=== PATIENT | male | born 1975 | race Hispanic/Latino ===

== ENCOUNTER 2019-02-09 16:41 | Emergency (ER) | payer OTHER ==
--- NOTE | 2019-02-09 17:56 | EDPHYS ---
Physician Documentation [facility] Name: David Wong Age: 43 yrs Sex: Male : 1975 Arrival Date: 02/09/2019 Time: 16:42 Bed 26 Private MD: ED Physician Froylan Ochao HPI: 02/09 17:52 This 43 yrs old Male presents to ER via Ambulatory with complaints of High jr8 Blood Pressure, Headache. 17:52 The patient has elevated blood pressure and discovered this at home. Onset: The jr8 symptoms/episode began/occurred acutely, today. Modifying factors: The symptoms are aggravated by activity. Associated signs and symptoms: Pertinent positives: headache. Severity of symptoms: At its worst the blood pressure was moderate, in the emergency department the blood pressure is improved. The patient has not experienced similar symptoms in the past. The patient has not recently seen a physician. Stated that he has been off of his medications for over 2 weeks now. Stated that he blood pressure was elevated and now having headache. Denies any other s/s. over nighted his medications . Historical: - Allergies: 16:54 Iodine; ss 16:54 Iodinated Contrast Media - IV Dye; ss - PMHx: 16:54 Hypertension; Narcolepsy; ss - PSHx: 16:54 None; ss - Immunization history:: Adult Immunizations up to date. - Social history:: Smoking status: Patient/guardian denies using tobacco, but has a distant history of tobacco abuse. - Ebola Screening: : Patient denies exposure to infectious person Patient denies travel to an Ebola-affected area in the 21 days before illness onset. ROS: 17:52 Eyes: Negative for injury, pain, redness, and discharge, ENT: Negative for injury, jr8 pain, and discharge, Neck: Negative for injury, pain, and swelling, Cardiovascular: Negative for chest pain, palpitations, and edema, Respiratory: Negative for shortness of breath, cough, wheezing, and pleuritic chest pain, Abdomen/GI: Negative for abdominal pain, nausea, vomiting, diarrhea, and constipation, Back: Negative for injury and pain, MS/Extremity: Negative for injury and deformity, Skin: Negative for injury, rash, and discoloration. 17:52 Neuro: Positive for headache, Negative for altered mental status, dizziness, gait disturbance, hearing loss, loss of consciousness, numbness, seizure activity, speech changes, syncope, near syncope, tingling, tinnitus, tremor, visual changes, weakness. Exam: 17:52 Eyes: Pupils equal round and reactive to light, extra-ocular motions intact. Lids and jr8 lashes normal. Conjunctiva and sclera are non-icteric and not injected. Cornea within normal limits. Periorbital areas with no swelling, redness, or edema. ENT: Nares patent. No nasal discharge, no septal abnormalities noted. Tympanic membranes are normal and external auditory canals are clear. Oropharynx with no redness, swelling, or masses, exudates, or evidence of obstruction, uvula midline. Mucous membranes moist. Neck: Trachea midline, no thyromegaly or masses palpated, and no cervical lymphadenopathy. Supple, full range of motion without nuchal rigidity, or vertebral point tenderness. No Meningismus. Cardiovascular: Regular rate and rhythm with a normal S1 and S2. No gallops, murmurs, or rubs. Normal PMI, no JVD. No pulse deficits. Respiratory: Lungs have equal breath sounds bilaterally, clear to auscultation and percussion. No rales, rhonchi or wheezes noted. No increased work of breathing, no retractions or nasal flaring. Abdomen/GI: Soft, non-tender, with normal bowel sounds. No distension or tympany. No guarding or rebound. No evidence of tenderness throughout. Back: No spinal tenderness. No costovertebral tenderness. Full range of motion. Skin: Warm, dry with normal turgor. Normal color with no rashes, no lesions, and no evidence of cellulitis. MS/ Extremity: Pulses equal, no cyanosis. Neurovascular intact. Full, normal range of motion. Neuro: Awake and alert, GCS 15, oriented to person, place, time, and situation. Cranial nerves II-XII grossly intact. Motor strength 5/5 in all extremities. Sensory grossly intact. Cerebellar exam normal. Normal gait. Vital Signs: 16:54 BP 153 / 93; Pulse 95; Resp 16; Temp 98.0(TE); Pulse Ox 99% on R/A; Weight 79.38 kg; ss Height 5 ft. 6 in. (167.64 cm); Pain 7/10; 16:54 Body Mass Index 28.25 (79.38 kg, 167.64 cm) ss MDM: 17:10 Patient medically screened. jr8 17:52 Data reviewed: vital signs, nurses notes, and as a result, I will discharge patient. jr8 Data interpreted: Pulse oximetry: on room air is 99 %. Interpretation: normal. Counseling: I had a detailed discussion with the patient and/or guardian regarding: the historical points, exam findings, and any diagnostic results supporting the discharge/admit diagnosis, the need for outpatient follow up, a family practitioner, to return to the emergency department if symptoms worsen or persist or if there are any questions or concerns that arise at home. Response to treatment: the patient's symptoms have resolved after treatment. Administered Medications: No medications were administered Disposition: 02/09/19 17:56 Discharged to Home. Impression: Essential (primary) hypertension. - Condition is Stable. - Discharge Instructions: Hypertension. - Medication Reconciliation Form, Thank You Letter, Antibiotic Education, Prescription Opioid Use form. - Follow up: Private Physician; When: As needed; Reason: Recheck today's complaints, Continuance of care, Re-evaluation by your physician. - Problem is new. - Symptoms have improved. Addendum: 02/11/2019 04:09 Co-signature as Attending Physician, Froylan Ochoa MD. g s Signatures: Sharon Melendez RN RN Don Salazar PA PA jr8 Froylan Ochoa MD MD Freddy Ballesteros RN RN rv Corrections: (The following items were deleted from the chart) 02/09 18:00 17:56 02/09/2019 17:56 Discharged to Home. Impression: Essential (primary) rv hypertension. Condition is Stable. Forms are Medication Reconciliation Form, Thank You Letter, Antibiotic Education, Prescription Opioid Use. Follow up: Private Physician; When: As needed; Reason: Recheck today's complaints, Continuance of care, Re-evaluation by your physician. Problem is new. Symptoms have improved. jr8
--- NOTE | 2019-02-09 17:56 | ER ---
Nurse's Notes [facility] Name: David Wong Age: 43 yrs Sex: Male : 1975 Arrival Date: 02/09/2019 Time: 16:42 Bed 26 Private MD: Diagnosis: Essential (primary) hypertension Presentation: 02/09 16:52 Presenting complaint: Patient states: headache that began yesterday and high blood ss pressure. Patient reports that he is from out of town and left him blood pressure medication back at home. Has not taking medication x 2 weeks. Transition of care: patient was not received from another setting of care. Onset of symptoms is unknown. Risk Assessment: Do you want to hurt yourself or someone else? Patient reports no desire to harm self or others. Initial Sepsis Screen: Does the patient meet any 2 criteria? No. Patient's initial sepsis screen is negative. Does the patient have a suspected source of infection? No. Patient's initial sepsis screen is negative. Care prior to arrival: None. 16:52 Method Of Arrival: Ambulatory ss 16:52 Acuity: KEENAN 3 ss Triage Assessment: 17:33 Headache History: Denies prior headaches. General: Appears in no apparent distress. rv uncomfortable, Behavior is calm, cooperative. Pain: Pain currently is 4 out of 10 on a pain scale. Pain began suddenly, Also complains of no other associated symptoms. Historical: - Allergies: 16:54 Iodine; ss 16:54 Iodinated Contrast Media - IV Dye; ss - PMHx: 16:54 Hypertension; Narcolepsy; ss - PSHx: 16:54 None; ss - Immunization history:: Adult Immunizations up to date. - Social history:: Smoking status: Patient/guardian denies using tobacco, but has a distant history of tobacco abuse. - Ebola Screening: : Patient denies exposure to infectious person Patient denies travel to an Ebola-affected area in the 21 days before illness onset. Screenin:32 Abuse screen: Denies threats or abuse. Denies injuries from another. Nutritional rv screening: No deficits noted. Tuberculosis screening: No symptoms or risk factors identified. Fall Risk None identified. Assessment: 17:29 General: Appears in no apparent distress. uncomfortable, Behavior is calm, cooperative. rv Pain: Complains of pain in head. Neuro: Level of Consciousness is awake, alert, obeys commands, Oriented to person, place, time, situation, Reports headache continuous throbbing pain, 4/10. Cardiovascular: Patient's skin is warm and dry. Respiratory: Airway is patent. GI: No signs and/or symptoms were reported involving the gastrointestinal system. : No signs and/or symptoms were reported regarding the genitourinary system. EENT: No signs and/or symptoms were reported regarding the EENT system. Derm: Skin is intact. Musculoskeletal: No signs and/or symptoms reported regarding the musculoskeletal system. Vital Signs: 16:54 BP 153 / 93; Pulse 95; Resp 16; Temp 98.0(TE); Pulse Ox 99% on R/A; Weight 79.38 kg; ss Height 5 ft. 6 in. (167.64 cm); Pain 7/10; 16:54 Body Mass Index 28.25 (79.38 kg, 167.64 cm) ED Course: 16:42 Patient arrived in ED. as 16:53 Triage completed. ss 16:54 Arm band placed on right wrist. ss 17:10 Freddy Ballesteros, ELDA is Primary Nurse. rv 17:10 Don Salazar PA is PHCP. jr8 17:10 Froylan Ochoa MD is Attending Physician. jr8 17:32 Patient has correct armband on for positive identification. Bed in low position. Call rv light in reach. Side rails up X 1. Pulse ox on. NIBP on. 18:00 No provider procedures requiring assistance completed. Patient did not have IV access rv during this emergency room visit. Administered Medications: No medications were administered Outcome: 17:56 Discharge ordered by . jr8 18:00 Discharged to home ambulatory. rv 18:00 Condition: good 18:00 Discharge instructions given to patient, Instructed on discharge instructions, follow up and referral plans. Demonstrated understanding of instructions, follow-up care. 18:00 Patient left the ED. rv Signatures: Isi Olmos Shelby RN RN Don Salazar PA PA [facility] Freddy Ballesteros RN RN rv
== END 2019-02-09 18:00 | disposition home or self-care (01) ==
LOC: ER 16:41
DX: I10 Essential (primary) hypertension (principal); Z91.041 Radiographic dye allergy status; Z91.048 Other nonmedicinal substance allergy status
CPT/HCPCS: 99283